=== PATIENT | female | born 2000 | race Caucasian/White ===

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

== ENCOUNTER → 2020-07-03 | Outpatient (CLI) | payer SELFPAY | LOC: M LABSMTC 12:43 | PROVIDERS: ATTEND Family Medicine | DX: Z20.822 Contact with and (suspected) exposure to COVID-19 (principal) ==

== ENCOUNTER → 2020-07-11 | Outpatient (CLI) | payer SELFPAY | LOC: M LABSMTC 12:27 | PROVIDERS: ATTEND Pediatrics | DX: Z20.822 Contact with and (suspected) exposure to COVID-19 (principal) ==

== ENCOUNTER 2022-02-23 03:13 | Emergency (ER) | payer OTHER, SELFPAY ==
[~2022-02-23] VITALS: Ht 152.4 cm; Wt 59.1 kg
[2022-02-23 03:14] VITALS: BP 120/65
== END 2022-02-23 03:59 | disposition left against medical advice (07) ==
LOC: M ED 03:13
DX: Z53.29 Procedure and treatment not carried out because of patient's decision for other reasons (principal)